=== PATIENT | male | born 1960 | race Caucasian/White ===

== ENCOUNTER 2017-08-01 02:19 | Inpatient (IN) | payer MEDICARE, OTHER ==
[~2017-08-01] VITALS: Ht 170.2 cm; Wt 59.9 kg
[~2017-08-01 02:19] MED LIST: DICL75TA5 PO; DOXA4TAB3 PO; LISI10TA5 PO; TAMS0.4C31 PO
[2017-08-01] MEDS ORDERED: ASPIRIN 81MG TABLET PO ONE (02:45)
[2017-08-01] MEDS ORDERED: NITROGLYCERIN OINT 1GM/INCH UDPKT TD ONE (02:45)
[2017-08-01 03:02] LABS: BASOPHILS % 1.3 % (0.0-2.0); EOSINOPHILS % 9.2 % (0.0-5.0); HEMATOCRIT. 43.3 % (42.0-52.0); HEMOGLOBIN. 14.6 g/dL (14.0-18.0); MEAN CORPUSCULAR HEMOGLOBIN 30.1 pg (28.0-32.0); MEAN CORPUSCULAR VOLUME 89.3 fL (80.0-94.0); MEAN PLATELET VOLUME 7.9 fl (7.4-10.4); MONOCYTES % 8.7 % (2.0-8.0); NEUTROPHILS % 52.8 % (40.0-76.0); PLATELET 265 x1000/uL (130-400); RED BLOOD CELL COUNT 4.85 mill/uL (4.7-6.1); RED CELL DISTRIBUTION WIDTH 15.1 % (11.6-14.6)
[2017-08-01 03:07] LABS: PROTHROMBIN TIME 10.9 sec (9.4-11.6)
[2017-08-01 03:42] LABS: CARBON DIOXIDE 21 mEq/L (21-32); CHLORIDE 109 mEq/L (98-107); ETHANOL BLOOD 67 mg/dL; TROPONIN I < 0.02 ng/mL (0.00-0.04)
[2017-08-01 03:44] LABS: *AMPHETAMINES SCREEN URINE NEGATIVE (NEGATIVE); *BARBITURATES SCREEN URINE NEGATIVE (NEGATIVE); *BENZODIAZEPINES SCREEN URINE NEGATIVE (NEGATIVE); *COCAINE SCREEN URINE NEGATIVE (NEGATIVE); CANNABINOID URINE SCREEN NEGATIVE (NEGATIVE); METHADONE URINE SCREEN NEGATIVE (NEGATIVE); OPIATES URINE SCREEN NEGATIVE (NEGATIVE); PHENCYCLIDINE URINE SCREEN NEGATIVE (NEGATIVE)
[2017-08-01] MEDS ORDERED: FAMOTIDINE 20MG/2ML VIAL IV NR (04:09)
[2017-08-01] MEDS ORDERED: PANTOPRAZOLE SODIUM 40 MG/VIAL IV NR (04:09)
[2017-08-01 08:00] VITALS: BP 115/77
[2017-08-01 08:23] VITALS: BP 115/77
[2017-08-01 09:08] VITALS: BP 115/72
[2017-08-01] MEDS ORDERED: ONDANSETRON HCL 4MG/2ML VIAL IV PRN (10:00)
[2017-08-01] MEDS ORDERED: IPRATROPIUM/ALBUTEROL 0.5-3(2.5)MG/3ML NEB INH PRN (10:00)
[2017-08-01] MEDS ORDERED: HYDROCODONE/ACETAMINOPHEN 5/325MG TABLET PO PRN (10:00)
[2017-08-01] MEDS ORDERED: CLONIDINE 0.1MG TABLET PO PRN (10:00)
[2017-08-01] MEDS ORDERED: ACETAMINOPHEN 325MG TABLET PO PRN (10:00)
[2017-08-01] MEDS ORDERED: LISINOPRIL 10MG TABLET PO SCH (11:21)
[2017-08-01 12:00] VITALS: BP 132/84
[2017-08-01] MEDS ORDERED: REGADENOSON 0.4 MG/5 ML IV ONE (12:45)
[2017-08-01] MEDS ORDERED: OLAN10TA19 PO (12:47)
[2017-08-01] MEDS: ENOXAPARIN 40MG/0.4ML SYR SUBCUT SCH (14:00)
[2017-08-01 16:00] VITALS: BP 123/84
[2017-08-01] MEDS: OLANZAPINE 10MG TABLET PO SCH ×2 (16:04→20:40)
[2017-08-01] MEDS ORDERED: DICLOFENAC SODIUM 75MG DR (EC) TABLET PO SCH (17:00)
[2017-08-01 20:00] VITALS: BP 127/74
[2017-08-02] VITALS: BP 97/55
[2017-08-02 04:00] VITALS: BP 113/60
[2017-08-02 08:00] VITALS: BP_SYST 116; BP_SYST 119; BP_DIAS 63; BP_DIAS 65
[2017-08-02 08:24] LABS: BASOPHILS % 0.6 % (0.0-2.0); EOSINOPHILS % 11.7 % (0.0-5.0); HEMATOCRIT. 39.4 % (42.0-52.0); HEMOGLOBIN. 12.8 g/dL (14.0-18.0); LYMPHOCYTES % 41.5 % (20.0-50.0); MEAN CORPUSCULAR VOLUME 89.3 fL (80.0-94.0); MEAN PLATELET VOLUME 8.6 fl (7.4-10.4); NEUTROPHILS % 37.2 % (40.0-76.0); PLATELET 275 x1000/uL (130-400); RED BLOOD CELL COUNT 4.42 mill/uL (4.7-6.1); RED CELL DISTRIBUTION WIDTH 15.1 % (11.6-14.6)
[2017-08-02 08:27] LABS: CARBON DIOXIDE 24 mEq/L (21-32); CHLORIDE 109 mEq/L (98-107); HDL CHOLESTEROL 45 mg/dL (40-59); LDL CHOLESTEROL 54 mg/dL (5-100)
[2017-08-02] MEDS ORDERED: LISINOPRIL 10MG TABLET PO SCH (09:00)
[2017-08-02] MEDS ORDERED: TAMSULOSIN HCL 0.4MG SR CAPSULE PO SCH (09:00)
[2017-08-02] MEDS ORDERED: DOXAZOSIN MESYLATE 4MG TABLET PO SCH (09:00)
[2017-08-02] MEDS ORDERED: ASPIRIN 81MG EC TABLET PO SCH (09:00)
[2017-08-02 12:00] VITALS: BP 104/55
[2017-08-02] MEDS: ENOXAPARIN 40MG/0.4ML SYR SUBCUT SCH (13:19)
== END 2017-08-02 14:10 | disposition left against medical advice (07) | DRG 311 ==
LOC: ER 02:19 → 8WST 04:23 → EDBEDREQTM 04:37 → EDBEDREQ 04:37 → EDBEDREQSVC 04:37 → ENRESERV 07:02
PROVIDERS: ADMIT Internal Medicine; ATTEND Internal Medicine
DX: I24.9 Acute ischemic heart disease, unspecified (principal); F20.9 Schizophrenia, unspecified; I11.9 Hypertensive heart disease without heart failure; I69.354 Hemiplegia and hemiparesis following cerebral infarction affecting left non-dominant side; F17.200 Nicotine dependence, unspecified, uncomplicated; F31.9 Bipolar disorder, unspecified; R74.0 Nonspecific elevation of levels of transaminase and lactic acid dehydrogenase [LDH]; J44.9 Chronic obstructive pulmonary disease, unspecified; Z79.899 Other long term (current) drug therapy; Z82.49 Family history of ischemic heart disease and other diseases of the circulatory system; Z86.19 Personal history of other infectious and parasitic diseases; Z88.8 Allergy status to other drugs, medicaments and biological substances; Z88.6 Allergy status to analgesic agent; Z71.6 Tobacco abuse counseling
CPT/HCPCS: 36415; 71010; 80053; 80061; 80305; 83690; 83880; 84484; 85025; 85610; 87040; 93005; 93306; 96365; 96375; 99285; C9113; G0482; J1650; J3490

== ENCOUNTER 2020-03-11 17:14 | Emergency (ER) | payer MEDICARE, MEDICAID ==
[~2020-03-11] VITALS: Ht 170.2 cm; Wt 77.0 kg
[~2020-03-11 17:14] MED LIST changes: -DICL75TA5 PO; +OLAN10TA19 PO
[2020-03-11 17:18] VITALS: BP 150/90
[2020-03-11] MEDS ORDERED: ACETAMINOPHEN 500MG TABLET PO ONE (19:00)
[2020-03-11] MEDS ORDERED: TRAMADOL 50MG TABLET PO ONE (20:15)
== END 2020-03-11 21:08 | disposition home or self-care (01) ==
LOC: ER 17:14
DX: S93.402A Sprain of unspecified ligament of left ankle, initial encounter (principal); E11.9 Type 2 diabetes mellitus without complications; I10 Essential (primary) hypertension; Z88.6 Allergy status to analgesic agent; Z88.8 Allergy status to other drugs, medicaments and biological substances; Z79.899 Other long term (current) drug therapy; Z96.659 Presence of unspecified artificial knee joint; Z86.73 Personal history of transient ischemic attack (TIA), and cerebral infarction without residual deficits; Z86.19 Personal history of other infectious and parasitic diseases; X58.XXXA Exposure to other specified factors, initial encounter; Y93.89 Activity, other specified; Y92.89 Other specified places as the place of occurrence of the external cause; Y99.8 Other external cause status
CPT/HCPCS: 73610; 99283